=== PATIENT | male | born 1995 | race Caucasian/White ===

== ENCOUNTER 2019-04-11 11:05 | Emergency (ER) | payer BC ==
[2019-04-11] MEDS ORDERED: PANTOPRAZOLE 40MG TABLET PO ONE (12:33)
[2019-04-11] MEDS ORDERED: ONDANSETRON 4 MG (ODT) TAB ONE (12:34)
--- NOTE | 2019-04-11 12:35 | EDPHYS ---
Physician Documentation [facility] Name: Alan Kline Age: 24 yrs Sex: Male : 1995 Arrival Date: 04/11/2019 Time: 11:11 Bed 10 Private MD: ED Physician Eduin Malone HPI: 04/11 12:31 This 24 yrs old Male presents to ER via Ambulatory with complaints of Nausea ps1 / Reflux. 12:31 Patient states that he has had 3 days of reflux and burning sensation in the esophagus. ps1 No history of GI complaints. States he ate [employer] a couple of days ago and has had symptoms since. No vomiting or hematemesis. No fever or diarrhea. . Historical: - Allergies: 11:15 No Known Allergies; hb - Home Meds: 11:15 None [Active]; hb - PMHx: 11:15 None; hb - PSHx: 11:15 None; hb - Immunization history:: Adult Immunizations up to date. - Social history:: Smoking status: Patient/guardian denies using tobacco. - Ebola Screening: : No symptoms or risks identified at this time. ROS: 12:31 Constitutional: Negative for fever, chills, and weight loss, Eyes: Negative for injury, ps1 pain, redness, and discharge, Cardiovascular: Negative for chest pain, palpitations, and edema, Respiratory: Negative for shortness of breath, cough, wheezing, and pleuritic chest pain, : Negative for injury, bleeding, discharge, and swelling, Skin: Negative for injury, rash, and discoloration, Neuro: Negative for headache, weakness, numbness, tingling, and seizure. 12:31 Abdomen/GI: Positive for nausea, reflux. Exam: 12:31 Constitutional: This is a well developed, well nourished patient who is awake, alert, ps1 and in no acute distress. Head/Face: Normocephalic, atraumatic. Eyes: Pupils equal round and reactive to light, extra-ocular motions intact. Lids and lashes normal. Conjunctiva and sclera are non-icteric and not injected. Chest/axilla: Normal chest wall appearance and motion. Nontender with no deformity. No lesions are appreciated. Cardiovascular: Regular rate and rhythm. No gallops, murmurs, or rubs. Normal PMI, no JVD. No pulse deficits. Respiratory: Lungs have equal breath sounds bilaterally, clear to auscultation and percussion. No rales, rhonchi or wheezes noted. No increased work of breathing, no retractions or nasal flaring. Abdomen/GI: Soft, non-tender, with normal bowel sounds. No distension or tympany. No guarding or rebound. No evidence of tenderness throughout. Skin: Warm, dry with normal turgor. Normal color with no rashes, no lesions, and no evidence of cellulitis. Neuro: Awake and alert, GCS 15, oriented to person, place, time, and situation. Cranial nerves II-XII grossly intact. Sensory grossly intact. Vital Signs: 11:15 BP 125 / 71; Pulse 92; Resp 16; Temp 97.7(TE); Pulse Ox 100% on R/A; Weight 104.33 kg; hb Height 6 ft. 2 in. (187.96 cm); Pain 5/10; 11:15 Body Mass Index 29.53 (104.33 kg, 187.96 cm) hb MDM: 12:31 Differential diagnosis: Nonspecific abd pain, gastritis, pancreatitis, peptic ulcer. ps1 Data reviewed: vital signs, nurses notes, and as a result, I will discharge patient. Counseling: I had a detailed discussion with the patient and/or guardian regarding: the historical points, exam findings, and any diagnostic results supporting the discharge/admit diagnosis, to return to the emergency department if symptoms worsen or persist or if there are any questions or concerns that arise at home. 12:34 Patient medically screened. ps1 Administered Medications: 12:35 Drug: Pantoprazole 40 mg Route: PO; iw 12:35 Drug: Zofran 4 mg Route: PO; iw Disposition: 04/11/19 12:34 Discharged to Home. Impression: Reflux esophagitis. - Condition is Stable. - Discharge Instructions: Food Choices for Gastroesophageal Reflux Disease, Adult, Gastroesophageal Reflux Disease, Adult. - Prescriptions for Prilosec 20 mg Oral Capsule - take 1 capsule by ORAL route once daily; 10 capsule. Zofran 4 mg Oral Tablet - take 1 tablet by ORAL route every 12 hours As needed; 20 tablet. - Work release form, Medication Reconciliation Form, Thank You Letter, Antibiotic Education, Prescription Opioid Use form. - Follow up: Emergency Department; When: As needed; Reason: Fever > 102 F, Worsening of condition. Follow up: Private Physician; When: As needed; Reason: Recheck today's complaints, Continuance of care, Re-evaluation by your physician. - Problem is new. - Symptoms are unchanged. Signatures: Tanya Mercedes RN RN Lani Rubio RN RN hb Singer, Phillip, MD MD ps1 Corrections: (The following items were deleted from the chart) 12:41 12:34 04/11/2019 12:34 Discharged to Home. Impression: Reflux esophagitis. Condition is iw Stable. Forms are Medication Reconciliation Form, Thank You Letter, Antibiotic Education, Prescription Opioid Use. Follow up: Emergency Department; When: As needed; Reason: Fever > 102 F, Worsening of condition. Follow up: Private Physician; When: As needed; Reason: Recheck today's complaints, Continuance of care, Re-evaluation by your physician. Problem is new. Symptoms are unchanged. ps1
--- NOTE | 2019-04-11 12:35 | ER ---
Nurse's Notes [facility] Name: Alan Kline Age: 24 yrs Sex: Male : 1995 Arrival Date: 04/11/2019 Time: 11:11 Bed 10 Private MD: Diagnosis: Reflux esophagitis Presentation: 04/11 11:13 Presenting complaint: Patient states: "I ate at [employer] 3 days ago and ever since hb then I have been dry heaving and having heartburn." Denies V/D/fever. Transition of care: patient was not received from another setting of care. Onset of symptoms was April 08, 2019. Risk Assessment: Do you want to hurt yourself or someone else? Patient reports no desire to harm self or others. Initial Sepsis Screen: Does the patient meet any 2 criteria? No. Patient's initial sepsis screen is negative. Does the patient have a suspected source of infection? No. Patient's initial sepsis screen is negative. Care prior to arrival: None. 11:13 Method Of Arrival: Ambulatory hb 11:13 Acuity: LEYDI 4 hb Historical: - Allergies: 11:15 No Known Allergies; hb - Home Meds: 11:15 None [Active]; hb - PMHx: 11:15 None; hb - PSHx: 11:15 None; hb - Immunization history:: Adult Immunizations up to date. - Social history:: Smoking status: Patient/guardian denies using tobacco. - Ebola Screening: : No symptoms or risks identified at this time. Vital Signs: 11:15 BP 125 / 71; Pulse 92; Resp 16; Temp 97.7(TE); Pulse Ox 100% on R/A; Weight 104.33 kg; hb Height 6 ft. 2 in. (187.96 cm); Pain 5/10; 11:15 Body Mass Index 29.53 (104.33 kg, 187.96 cm) hb ED Course: 11:11 Patient arrived in ED. mr 11:15 Triage completed. hb 11:15 Arm band placed on. hb 11:55 Eduin Malone MD is Attending Physician. ps1 12:31 Tanya Mercedes RN is Primary Nurse. iw Administered Medications: 12:35 Drug: Pantoprazole 40 mg Route: PO; iw 12:35 Drug: Zofran 4 mg Route: PO; iw Outcome: 12:34 Discharge ordered by . ps1 12:41 Patient left the ED. iw Signatures: Sailaja Kyle Irene, RN RN iw Baxter, Heather, RN RN Eduin Ramirez MD MD ps1
[2019-04-11 12:50] VITALS: BP 125/71; TEMP 97.7; O2SAT 100
== END 2019-04-11 12:41 | disposition home or self-care (01) ==
LOC: ER 11:05
DX: K21.9 Gastro-esophageal reflux disease without esophagitis (principal)
CPT/HCPCS: 99282